=== PATIENT | female | born 1965 | race American Indian/Alaskan Native ===

== ENCOUNTER 2017-03-15 20:31 | Emergency (ER) | payer MEDICAID ==
[2017-03-15] MEDS ORDERED: PROVENTIL IH ONE (21:03)
[2017-03-16] MEDS ORDERED: DELTASONE PO ONE (02:34)
[2017-03-16] MEDS ORDERED: DUONEB 0.5 MG-3 MG/3 ML SOLN IH ONE (02:34)
--- NOTE | 2017-03-16 02:46 | Emergency Department Report ---
ED Asthma HPI - General Chief Complaint: Adult Asthma Stated Complaint: NIKITA Time Seen by Provider: 03/16/17 02:12 Source: patient Mode of arrival: Ambulatory Limitations: No Limitations - History of Present Illness Initial Comments: 51-year-old female past medical history asthma presents with complaint of 2-3 weeks of intermittent wheeziness. Patient states she ran out of her albuterol and an inhaler weeks ago. On exam patient not visibly in any respiratory distress. States she feels significantly better after the albuterol treatment she received in triage. Patient unaware of baseline peak flow. Denies any history of intubations or hospitalizations for asthma attack. Patient denies being a smoker. Patient accompanied by her daughter. MD Complaint: "asthma attack", wheezing Onset/Timin -: week(s) Asthma History: childhood onset, history of prior ED visit Severity: moderate Context: recent URI - Related Data Current Asthma Therapy: inhaled bronchodilator Previous Rx's Medication Instructions Recorded Last Taken Type ALBUTEROL Inhaler [ProAir HFA 2 puff IH QID PRN #1 inhalation 03/16/17 Unknown Rx Inhaler] Albuterol Sulfate [Albuterol 0.63% 0.63 mg IH TID PRN #1 box 03/16/17 Unknown Rx NEBS] Azithromycin [Zithromax Z-PREMA] 250 mg PO QDAY #6 tablet 03/16/17 Unknown Rx Prednisone [predniSONE 10 mg 10 mg PO .TAPER #1 tab.ds.pk 03/16/17 Unknown Rx (6-Day Pack, 21 Tabs)] guaiFENesin DM [Robitussin Dm] 10 ml PO Q6HR PRN #1 udc 03/16/17 Unknown Rx Allergies Allergy/AdvReac Type Severity Reaction Status Date / Time Penicillins Allergy Swelling Verified 03/15/17 21:03 procaine HCl [From Novocain] Allergy Swelling Verified 03/15/17 21:03 ED Review of Systems ROS: Stated complaint: NIKITA Other details as noted in HPI Constitutional: denies: chills, fever Eyes: denies: eye pain, eye discharge, vision change ENT: denies: ear pain, throat pain Respiratory: cough, wheezing. denies: shortness of breath Cardiovascular: denies: chest pain, palpitations Endocrine: no symptoms reported Gastrointestinal: denies: abdominal pain, nausea, diarrhea Genitourinary: denies: urgency, dysuria, discharge Musculoskeletal: denies: back pain, joint swelling, arthralgia Skin: denies: rash, lesions Neurological: denies: headache, weakness, paresthesias Psychiatric: denies: anxiety, depression Hematological/Lymphatic: denies: easy bleeding, easy bruising ED Past Medical Hx - Past Medical History Previous Medical History?: Yes Hx Asthma: Yes - Surgical History Past Surgical History?: No - Social History Smoking Status: Never Smoker Substance Use Type: None - Medications Home Medications: Home Medications Medication Instructions Recorded Confirmed Last Taken Type ALBUTEROL Inhaler [ProAir HFA 2 puff IH QID PRN #1 inhalation 03/16/17 Unknown Rx Inhaler] Albuterol Sulfate [Albuterol 0.63% 0.63 mg IH TID PRN #1 box 03/16/17 Unknown Rx NEBS] Azithromycin [Zithromax Z-PREMA] 250 mg PO QDAY #6 tablet 03/16/17 Unknown Rx Prednisone [predniSONE 10 mg 10 mg PO .TAPER #1 tab.ds.pk 03/16/17 Unknown Rx (6-Day Pack, 21 Tabs)] guaiFENesin DM [Robitussin Dm] 10 ml PO Q6HR PRN #1 udc 03/16/17 Unknown Rx ED Physical Exam - General Limitations: No Limitations General appearance: alert, in no apparent distress - Head Head exam: Present: atraumatic, normocephalic - Eye Eye exam: Present: normal appearance, PERRL, EOMI - ENT ENT exam: Present: mucous membranes moist - Neck Neck exam: Present: normal inspection - Respiratory Respiratory exam: Present: normal lung sounds bilaterally, wheezes (mild wheezing lower lung mcduffie bilaterally on clinical auscultation). Absent: respiratory distress - Cardiovascular Cardiovascular Exam: Present: regular rate, normal rhythm. Absent: systolic murmur, diastolic murmur, rubs, gallop - GI/Abdominal GI/Abdominal exam: Present: soft, normal bowel sounds - Extremities Exam Extremities exam: Present: normal inspection - Back Exam Back exam: Present: normal inspection - Neurological Exam Neurological exam: Present: alert, oriented X3 - Psychiatric Psychiatric exam: Present: normal affect, normal mood - Skin Skin exam: Present: warm, dry, intact, normal color. Absent: rash ED Course Vital Signs 03/15/17 03/16/17 03/16/17 20:40 01:30 02:49 Temperature 97.8 F Pulse Rate 81 73 Pulse Rate [ 78 Left Bases] Respiratory 20 20 Rate Respiratory 18 Rate [Left Bases] Blood Pressure 158/92 168/90 [Right] O2 Sat by Pulse 96 97 Oximetry 03/16/17 03/16/17 02:57 04:25 Temperature Pulse Rate 75 Pulse Rate [ 76 Left Bases] Respiratory 20 Rate Respiratory 18 Rate [Left Bases] Blood Pressure 133/81 [Right] O2 Sat by Pulse 96 Oximetry ED Medical Decision Making - Medical Decision Making A/P: Asthma exacerbation 1-prednisone Dosepak, albuterol, nebulized albuterol refill, guaiFenesin DM 2-azithromycin Z-Prema as patient has some degree of atelectasis 3-patient experienced significant relief of shortness of breath with nebulized albuterol and ED 4-vital signs stable upon discharge, patient's O2 sat 97% on room air speaking full sentences no audible wheezing or stridor 5- follow-up with primary care doctor 6-I advised patient to return to the ED if she experiences fevers chills worsened cough despite use of prescription medicines Critical care attestation.: If time is entered above; I have spent that time in minutes in the direct care of this critically ill patient, excluding procedure time. ED Disposition Clinical Impression: Asthma exacerbation Disposition: DC-01 TO HOME OR SELFCARE Is pt being admited?: No Does the pt Need Aspirin: No Condition: Stable Instructions: Asthma (ED), Acute Bronchitis (ED), Reactive Airways Disease (ED) Prescriptions: ALBUTEROL Inhaler [ProAir HFA Inhaler] 2 puff IH QID PRN #1 inhalation PRN Reason: Shortness Of Breath Albuterol Sulfate [Albuterol 0.63% NEBS] 0.63 mg IH TID PRN #1 box PRN Reason: Wheezing Azithromycin [Zithromax Z-PREMA] 250 mg PO QDAY #6 tablet guaiFENesin DM [Robitussin Dm] 10 ml PO Q6HR PRN #1 udc PRN Reason: Cough Prednisone [predniSONE 10 mg (6-Day Pack, 21 Tabs)] 10 mg PO .TAPER #1 tab.ds.pk Referrals: [facility] [Provider Group] - 3-[address] [facility] [Outside] - 3-5 Days SKYLAR WOODS MD [Staff Physician] - 3-5 Days Forms: Accompanied Note, Work/School Release Form(ED) Time of Disposition: 04:34
--- NOTE | 2017-03-16 04:16 | XRay Report ---
FINAL REPORT PROCEDURE: XR CHEST ROUTINE 2V TECHNIQUE: Chest radiograph two views AP and lateral HISTORY: worsening cough, rhonchi COMPARISON: No prior studies are available for comparison. FINDINGS: Heart: Normal. Mediastinum/Vessels: Normal. Lungs/Pleural space: Slight atelectasis/infiltrate in both lower lungs. No effusion or pneumothorax. Bony thorax: No acute osseous abnormality. Life support devices: None. IMPRESSION: Mild bilateral lower lung atelectasis/infiltrate..
[2017-03-16 04:25] VITALS: BP 133/81
== END 2017-03-16 04:47 | disposition home or self-care (01) ==
LOC: ED 20:31
DX: J45.901 Unspecified asthma with (acute) exacerbation (principal); Z88.0 Allergy status to penicillin; Z88.8 Allergy status to other drugs, medicaments and biological substances
CPT/HCPCS: 71020; 93005; 93010; 94640; 99284; J7512

== ENCOUNTER 2019-01-02 05:55 | Emergency (ER) | payer MEDICAID, OTHER ==
--- NOTE | 2019-01-02 06:52 | XRay Report ---
PROCEDURE: XR CHEST ROUTINE 2V TECHNIQUE: PA and lateral views of the chest were submitted. HISTORY: NIKITA COMPARISONS: None FINDINGS: The heart is mildly enlarged. There is diffuse interstitial changes in both lungs which appears to be on a chronic basis. Superimposed interstitial edema cannot be excluded. Pleural fluid is not seen. T he skeletal structures do not show any acute changes. IMPRESSION: Extensive interstitial disease in both lungs which appears be a chronic basis. Superimposed interstit ial edema still cannot entirely be excluded. This document is electronically signed by Uziel Murcia MD., January 02 2019 06:51:02 AM ET
[2019-01-02] MEDS ORDERED: LASIX PO ONE (09:20)
[2019-01-02 12:14] LABS: Basophils # (Auto) 0.1 K/mm3 (0.0-0.1); Basophils % (Auto) 0.5 % (0.0-1.8); Eosinophils # (Auto) 0.4 K/mm3 (0.0-0.4); Eosinophils % (Auto) 2.9 % (0.0-4.3); Hematocrit 43.2 % (30.3-42.9); Hemoglobin 14.8 gm/dl (10.1-14.3); Lymphocytes # (Auto) 2.4 K/mm3 (1.2-5.4); Lymphocytes % (Auto) 19.1 % (13.4-35.0); Mean Corpuscular HGB Conc 34 % (30-34); Mean Corpuscular Volume 87 fl (79-97); Monocytes # (Auto) 0.5 K/mm3 (0.0-0.8); Monocytes % (Auto) 4.1 % (0.0-7.3); Platelet Count 271 K/mm3 (140-440); Red Blood Count 4.98 M/mm3 (3.65-5.03)
[2019-01-02 12:30] LABS: BUN/Creatinine Ratio 15; Blood Urea Nitrogen 12 mg/dL (7-17); Calcium 9.5 mg/dL (8.4-10.2); Hemolysis Index 10
--- NOTE | 2019-01-02 13:04 | Emergency Department Report ---
- General Chief Complaint: Dyspnea/Respdistress Stated Complaint: CP/NIKITA Time Seen by Provider: 01/02/19 09:07 Source: patient Mode of arrival: Ambulatory Limitations: No Limitations - History of Present Illness Initial Comments: Patient is a 53-year-old Female who is complaining of cough congestion shortness of breath for the last 3 weeks. Patient states that she has some increased shortness of breath when she exerts himself. She has noticed some wheezing as well. Patient is cough is productive of clear sputum. Patient denies any fevers chills nausea vomiting. - Related Data Previous Rx's Medication Instructions Recorded Last Taken Type ALBUTEROL Inhaler (OR & NICU) 2 puff IH QID PRN #1 inhalation 03/16/17 Unknown Rx [ProAir HFA Inhaler] Albuterol Sulfate [Albuterol 0.63% 0.63 mg IH TID PRN #1 box 03/16/17 Unknown Rx NEBS] Azithromycin [Zithromax Z-PREMA] 250 mg PO QDAY #6 tablet 03/16/17 Unknown Rx Prednisone [predniSONE 10 mg 10 mg PO .TAPER #1 tab.ds.pk 03/16/17 Unknown Rx (6-Day Pack, 21 Tabs)] guaiFENesin DM [Robitussin Dm] 10 ml PO Q6HR PRN #1 udc 03/16/17 Unknown Rx ALBUTEROL Inhaler(NF) [VENTOLIN 1 puff IH Q4HRT PRN #1 inha 01/02/19 Unknown Rx Inhaler(NF)] Doxycycline [Vibramycin CAP] 100 mg PO Q12HR #14 capsule 01/02/19 Unknown Rx guaiFENesin/CODEINE [Robitussin AC] 5 ml PO Q6HR PRN #100 oral.liqd 01/02/19 Unknown Rx predniSONE [Deltasone] 20 mg PO QDAY #5 tab 01/02/19 Unknown Rx Allergies Allergy/AdvReac Type Severity Reaction Status Date / Time Penicillins Allergy Swelling Verified 03/15/17 21:03 procaine HCl [From Novocain] Allergy Swelling Verified 03/15/17 21:03 ED Review of Systems ROS: Stated complaint: CP/NIKITA Other details as noted in HPI Comment: All other systems reviewed and negative ED Past Medical Hx - Past Medical History Hx Asthma: Yes - Surgical History Past Surgical History?: No - Social History Smoking Status: Never Smoker Substance Use Type: None - Medications Home Medications: Home Medications Medication Instructions Recorded Confirmed Last Taken Type ALBUTEROL Inhaler (OR & NICU) 2 puff IH QID PRN #1 inhalation 03/16/17 Unknown Rx [ProAir HFA Inhaler] Albuterol Sulfate [Albuterol 0.63% 0.63 mg IH TID PRN #1 box 03/16/17 Unknown Rx NEBS] Azithromycin [Zithromax Z-PREMA] 250 mg PO QDAY #6 tablet 03/16/17 Unknown Rx Prednisone [predniSONE 10 mg 10 mg PO .TAPER #1 tab.ds.pk 03/16/17 Unknown Rx (6-Day Pack, 21 Tabs)] guaiFENesin DM [Robitussin Dm] 10 ml PO Q6HR PRN #1 udc 03/16/17 Unknown Rx ALBUTEROL Inhaler(NF) [VENTOLIN 1 puff IH Q4HRT PRN #1 inha 01/02/19 Unknown Rx Inhaler(NF)] Doxycycline [Vibramycin CAP] 100 mg PO Q12HR #14 capsule 01/02/19 Unknown Rx guaiFENesin/CODEINE [Robitussin AC] 5 ml PO Q6HR PRN #100 oral.liqd 01/02/19 Unknown Rx predniSONE [Deltasone] 20 mg PO QDAY #5 tab 01/02/19 Unknown Rx ED Physical Exam - General Limitations: No Limitations General appearance: alert, in no apparent distress - Head Head exam: Present: atraumatic, normocephalic - Eye Eye exam: Present: normal appearance - ENT ENT exam: Present: mucous membranes moist - Neck Neck exam: Present: normal inspection - Respiratory Respiratory exam: Present: normal lung sounds bilaterally. Absent: respiratory distress, wheezes, rales, rhonchi - Cardiovascular Cardiovascular Exam: Present: regular rate, normal rhythm. Absent: systolic murmur, diastolic murmur, rubs, gallop - GI/Abdominal GI/Abdominal exam: Present: soft, normal bowel sounds. Absent: distended, tenderness, guarding, rebound - Extremities Exam Extremities exam: Present: normal inspection - Back Exam Back exam: Present: normal inspection - Neurological Exam Neurological exam: Present: alert, oriented X3 - Psychiatric Psychiatric exam: Present: normal affect, normal mood - Skin Skin exam: Present: warm, dry, intact, normal color. Absent: rash ED Course Vital Signs 01/02/19 06:07 Temperature 97.7 F Pulse Rate 77 Respiratory 18 Rate Blood Pressure 150/89 ED Medical Decision Making - Lab Data Result diagrams: 01/02/19 11:57 01/02/19 11:57 Lab Results 01/02/19 01/02/19 Range/Units 11:57 11:57 WBC 12.6 H (4.5-11.0) K/mm3 RBC 4.98 (3.65-5.03) M/mm3 Hgb 14.8 H (10.1-14.3) gm/dl Hct 43.2 H (30.3-42.9) % MCV 87 (79-97) fl MCH 30 (28-32) pg MCHC 34 (30-34) % RDW 15.0 (13.2-15.2) % Plt Count 271 (140-440) K/mm3 Lymph % (Auto) 19.1 (13.4-35.0) % Parke % (Auto) 4.1 (0.0-7.3) % Eos % (Auto) 2.9 (0.0-4.3) % Baso % (Auto) 0.5 (0.0-1.8) % Lymph # 2.4 (1.2-5.4) K/mm3 Parke # 0.5 (0.0-0.8) K/mm3 Eos # 0.4 (0.0-0.4) K/mm3 Baso # 0.1 (0.0-0.1) K/mm3 Seg Neutrophils % 73.4 H (40.0-70.0) % Seg Neutrophils # 9.2 H (1.8-7.7) K/mm3 Sodium 142 (137-145) mmol/L Potassium 3.9 (3.6-5.0) mmol/L Chloride 102.2 (98-107) mmol/L Carbon Dioxide 26 (22-30) mmol/L Anion Gap 18 mmol/L BUN 12 (7-17) mg/dL Creatinine 0.8 (0.7-1.2) mg/dL Estimated GFR > 60 ml/min BUN/Creatinine Ratio 15 % Glucose 100 (65-100) mg/dL Calcium 9.5 (8.4-10.2) mg/dL Troponin T < 0.010 (0.00-0.029) ng/mL NT-Pro-B Natriuret Pep 15.52 (0-900) pg/mL - Radiology Data [facility] [address] [place] [address] XRay Report Signed Patient: ABHINAV MOLINA MR# : [id number] : 1965 Acct:[id number] Age/Sex: 53 / F ADM Date: 01/02/19 Loc: ED Attending Dr: Ordering Physician: DARIN GAGE MD Date of Service: 01/02/19 Procedure(s): XR chest routine 2V Accession Number(s): [id number] cc: ED MD TOO Fluoro Time In Minutes: PROCEDURE: XR CHEST ROUTINE 2V TECHNIQUE: PA and lateral views of the chest were submitted. HISTORY: NIKITA COMPARISONS: None FINDINGS: The heart is mildly enlarged. There is diffuse interstitial changes in both lungs which appears to be on a chronic basis. Superimposed interstitial edema cannot be excluded. Pleural fluid is not seen. The skeletal structures do not show any acute changes. IMPRESSION: Extensive interstitial disease in both lungs which appears be a chronic basis. Superimposed interstitial edema still cannot entirely be excluded. This document is electronically signed by Dinora Murcia MD., January 02 2019 06:51:02 AM ET Transcribed By: RB Dictated By: DINORA MURCIA MD Electronically Authenticated By: DINORA MURCIA MD Signed Date/Time: 01/02/19651 DD/ 5 TD/TT: 01/02/19645 - Medical Decision Making After seeing the chest x-ray showing some possible pulmonary edema and intersti tial changes BMP was ordered. This was normal. The patient left her studies also within normal limits. Patient's per my interpretation of the chest x-ray does have some increased interstitial haziness in the left lower lobe. Patient also did not take a deep breath there was some hyperinflation and patient has some atelectasis. The patient likely with atypical pneumonia. Patient will be started on his doxycycline patient also be given symptomatically for sure be discharged home. Critical care attestation.: If time is entered above; I have spent that time in minutes in the direct care of this critically ill patient, excluding procedure time. ED Disposition Clinical Impression: Atypical pneumonia Disposition: DC-01 TO HOME OR SELFCARE Is pt being admited?: No Does the pt Need Aspirin: No Condition: Stable Instructions: Pneumonia (ED) Referrals: STEPHANIE BRICE MD [Primary Care Provider] - 3-5 Days Time of Disposition: 13:04
[2019-01-02 13:29] VITALS: BP 132/85
== END 2019-01-02 13:29 | disposition home or self-care (01) ==
LOC: ED 05:55
DX: J18.8 Other pneumonia, unspecified organism (principal); J45.909 Unspecified asthma, uncomplicated; Z79.899 Other long term (current) drug therapy
CPT/HCPCS: 36415; 71046; 80048; 83880; 84484; 85025; 93005; 93010